=== PATIENT | male | born 1965 | race Caucasian/White ===

== ENCOUNTER 2020-04-17 12:28 | Emergency (ER) | payer OTHER, BC ==
[~2020-04-17] VITALS: Ht 177.8 cm; Wt 79.4 kg
== END 2020-04-17 14:56 | disposition home or self-care (01) ==
LOC: ER 12:28
DX: S50.11XA Contusion of right forearm, initial encounter (principal); Z88.0 Allergy status to penicillin; V86.52XA Driver of snowmobile injured in nontraffic accident, initial encounter
CPT/HCPCS: 73090; 73100; 99283-25